=== PATIENT | female | born 1965 | race Caucasian/White ===

== ENCOUNTER 2025-04-04 07:36 | Day surgery (SDC) | payer BC ==
[2025-04-04] MEDS ORDERED: fentaNYL 50 MCG/ML SDV ONE (08:15)
[2025-04-04] MEDS ORDERED: Propofol 200 MG/20 ML SDV ONE (08:15)
[2025-04-04] MEDS ORDERED: Midazolam 1 MG/ML 2 ML SDV ONE (08:15)
[2025-04-04] MEDS: Lactated Ringers 1,000 ML IV SCH (08:37)
== END 2025-04-04 11:21 | disposition home or self-care (01) ==
LOC: JP.SDS 07:36
PROVIDERS: ATTEND Surgery
DX: Z12.11 Encounter for screening for malignant neoplasm of colon (principal); E11.9 Type 2 diabetes mellitus without complications; E66.9 Obesity, unspecified; F41.9 Anxiety disorder, unspecified; F32.A Depression, unspecified; Z79.84 Long term (current) use of oral hypoglycemic drugs; Z79.82 Long term (current) use of aspirin; Z79.899 Other long term (current) drug therapy
CPT/HCPCS: 00812; 45378; J2250; J2704; J3010; J7120